=== PATIENT | male | born 1985 | race Caucasian/White ===

== ENCOUNTER 2025-05-03 19:35 | Inpatient (IN) | payer SELFPAY ==
[2025-05-03 19:39] VITALS: BP 115/65; PULSE 88; RESP 14; TEMP 36.6; O2SAT 96
--- NOTE | 2025-05-03 19:41 | ECG_ITS ---
Test Date: 2025-05-03 20:02:44 Measurements Intervals [place] Rate: 79 P: 74 MI: 165 QRS: 88 QRSD: 98 T: 73 QT: 391 QTc: 451 Interpretive Statements SINUS RHYTHM POSSIBLE LEFT ATRIAL ENLARGEMENT CANNOT R/O SEPTAL INFARCT, AGE INDETERMINATE ST ELEVATION IN ANTEROLAT/INF LEADS- CONSIDER PERICARDITIS OR EARLY REPOLARIZATION ABNORMALITY ABNORMAL ECG No previous ECG available for comparison Electronically Signed On 05-03-2025 20:35:52 CDT by Carlos Patel D.O.
[2025-05-03 19:44] VITALS: RESP 14; O2SAT 97
[2025-05-03] MEDS: ONDANSETRON INJ 4 MG/2 ML VIAL IV PUSH (19:52)
[2025-05-03] MEDS: SODIUM CHLORIDE 0.9% IV 1,000 ML 999 ML IV CONT (19:52)
[2025-05-03 20:05] VITALS: PULSE 82
[2025-05-03 20:06] LABS: Fractional Inspired Oxygen 21 %; HCO3 VBG 15.2 mEq/l (24.0-30.0); PO2 VBG 106.9 mmHg (35.0-45.0)
[2025-05-03 20:07] LABS: Device ROOM AIR; PCO2 VBG 24.5 mmHg (42.0-48.0); pH VBG 7.411 (7.300-7.400)
[2025-05-03 20:10] LABS: Basophils Percent Auto 0.6 % (0.2-1.2); Eosinophils Absolute Auto 0.2 K/mm3 (0-0.3); Eosinophils Percent Auto 2.6 % (0-4.4); Hematocrit 25.5 % (42.0-52.0); Hemoglobin 8.2 g/dL (14.0-18.0); Immature Granulocyte Absolute 0.04 K/mm3 (0.00-0.031); Immature Granulocyte Percent A 0.6 % (0-0.5); Lymphocytes Absolute Auto 1.96 K/mm3 (0.9-3.2); Lymphocytes Percent Auto 27.8 % (18.3-44.2); Mean Corpuscular HGB Conc 32.2 g/dl (32-36); Mean Corpuscular Hemoglobin 31.3 pg (26-34); Mean Corpuscular Volume 97.3 fl (80-100); Mean Platelet Volume 9.3 fl (7.4-10.4); Monocytes Absolute Auto 0.5 K/mm3 (0.1-0.6); Monocytes Percent Auto 7.7 % (2.6-8.5); Neutrophils Absolute Auto 4.3 K/mm3 (1.3-6.7); Neutrophils Percent Auto 60.7 % (45.5-73.1); Platelet Count Result 161 k/mm3 (150-375); Red Blood Count 2.62 M/mm3 (4.6-6.20); White Blood Count 7.1 K/mm3 (4.5-10.0)
--- NOTE | 2025-05-03 20:16 | ED_ITS ---
HPI - General Adult General Chief complaint: Overdose Stated complaint: OVERDOSE ON TYLENOL Time Seen by Provider: 05/03/25 19:40 History of Present Illness HPI narrative: This is a 40-year-old male presenting ED for Tylenol overdose. Patient says he talked approximately 115 500 mg tabs of Tylenol. He did this in an attempt to end his life. Patient cannot tell me why he wanted to end his life. He has have a history of suicide attempts we will not tell me why. The patient admits to being nauseous. No other symptoms. Related Data Allergies Allergy/AdvReac Type Severity Reaction Status Date / Time No Known Allergies Allergy Verified 05/03/25 19:47 [facility] Social History Social History Substance use type: does not use Exam 2 Narrative: APPEARANCE: No apparent distress. Head: atraumatic. EYES: EOMI, NOSE: Atraumatic NECK: Trachea midline RESPIRATORY: No increased rate of breathing CTAB CARDIOVASCULAR: RRR, no peripheral edema ABDOMINAL: Non-distended soft nontender MUSCULOSKELETAl: No obvious deformities NEURO: Alert. Moving 4/4 extremities SKIN:: Warm, dry. Normal color PSYCHIATRIC: Withdrawn Course Vital Signs Vital signs: Vital Signs Temperature 97.8 F 05/03/25 19:39 Pulse Rate 88 05/03/25 19:39 Respiratory Rate 14 05/03/25 19:39 Blood Pressure 115/65 05/03/25 19:39 Pulse Oximetry 96 05/03/25 19:39 Oxygen Delivery Room Air 05/03/25 19:39 Temperature 97.8 F 05/03/25 19:39 Pulse Rate 82 05/03/25 20:05 Respiratory Rate 14 05/03/25 19:44 Blood Pressure 115/65 05/03/25 19:39 Pulse Oximetry 97 05/03/25 19:44 Oxygen Delivery Room Air 05/03/25 19:44 Medical Decision Making [facility] Narrative Medical decision making narrative: -Course: 40-year-old male presenting with intentional Tylenol overdose. Patient took proximally 115 x 500mg tablets. Poison control consulted. Initial acetaminophen level elevated at 303. Patient hits the cutoff for NAC treatment and he has been started on therapy. Initial labs had multiple abnormalities did not fit the clinical picture. These were repeated with normal values. Patient will be admitted to the ICU for further management of his acetaminophen overdose. UA and UDS were pending at admission. -DDX includes but is not limited to: Tylenol overdose,, polysubstance use disorder, suicide attempt, depression, anxiety -Co-morbidities complicating care: Depression, -Social determinants of health: Homeless -Independent interpretation of studies: White count 9.6. Hemoglobin 13.5. Metabolic panel unremarkable. Liver enzymes @ baseline. INR 1.7 although this is being repeated due to some lab errors. Acetaminophen initially 303 and increased to 391. 4 hour level pending. Viral swabs negative. Independent EKG interpretation: Rhythm [sinus], Rate [79], [place] -[normal], [place] -[normal], QRS [narrow], QTC [normal], T waves -[negative for concerning inversions], ST Segments - [Negative for concerning elevations] Final interpretations: Normal sinus rhythm with benign early repol. -Discussion of Management/Consultants:Javon Gonzalez Vital Signs Vital Signs: Vital Signs Temperature 97.8 F 05/03/25 19:39 Pulse Rate 88 05/03/25 19:39 Respiratory Rate 14 05/03/25 19:39 Blood Pressure 115/65 05/03/25 19:39 Pulse Oximetry 96 05/03/25 19:39 Oxygen Delivery Room Air 05/03/25 19:39 Temperature 97.8 F 05/03/25 19:39 Pulse Rate 82 05/03/25 20:05 Respiratory Rate 14 05/03/25 19:44 Blood Pressure 115/65 05/03/25 19:39 Pulse Oximetry 97 05/03/25 19:44 Oxygen Delivery Room Air 05/03/25 19:44 Lab Data 05/03/25 20:45 05/03/25 20:45 Labs: Lab Results 05/03/25 05/03/25 Range/Units 20:02 20:45 WBC 7.1 9.6 (4.5-10.0) K/mm3 RBC 2.62 L 4.28 L (4.6-6.20) M/mm3 Hgb 8.2 L 13.5 L D (14.0-18.0) g/dL Hct 25.5 L 40.8 L (42.0-52.0) % MCV 97.3 95.3 (80-100) fl MCH 31.3 31.5 (26-34) pg MCHC 32.2 33.1 (32-36) g/dl RDW 13.0 12.9 (11.5-14.5) % Plt Count 161 254 D (150-375) k/mm3 MPV 9.3 9.3 (7.4-10.4) fl Immature Gran % (Auto) 0.6 H 0.4 (0-0.5) % Neut % (Auto) 60.7 67.9 (45.5-73.1) % Lymph % (Auto) 27.8 20.8 (18.3-44.2) % [place] % (Auto) 7.7 8.5 (2.6-8.5) % Eos % (Auto) 2.6 1.6 (0-4.4) % Baso % (Auto) 0.6 0.8 (0.2-1.2) % Lymph # (Auto) 1.96 1.99 (0.9-3.2) K/mm3 [place] # (Auto) 0.5 0.8 H (0.1-0.6) K/mm3 Eos # (Auto) 0.2 0.2 (0-0.3) K/mm3 Baso # (Auto) 0.0 0.1 (0.0-0.1) K/mm3 Abs Immat Gran (auto) 0.04 H 0.04 H (0.00-0.031) K/mm3 Absolute Neuts (auto) 4.3 6.5 (1.3-6.7) K/mm3 Absolute Nucleated RBC 0.000 0.000 (0.0-0.012) K/mm3 Nucleated RBC % 0.0 0.0 (0.0-0.2) % PT 20.0 H (11.1-14.7) Seconds INR 1.7 APTT 33.9 (22.3-36.8) Seconds Sodium 141 139 (137-145) mmol/L Potassium < 2.0 L* 4.1 (3.4-5.0) mmol/L Chloride 125 H 105 (98-107) mmol/L Carbon Dioxide 12 L 27 (22-30) mmol/L Anion Gap 4 7 (4-12) mmol/L BUN 10 17 (9-20) mg/dL Creatinine 0.32 L 0.73 (0.7-1.3) mg/dL Estim Creat Clear Calc 264 128 ml/min Estimated GFR > 60 > 60 (59 - ) Glucose 103 151 H (65-110) mg/dL Calcium 4.6 L* 8.9 (8.4-10.2) mg/dL Phosphorus 2.6 (2.5-4.5) mg/dL Magnesium 0.9 L 1.7 (1.6-2.3) mg/dL Total Bilirubin 0.5 0.8 (0.2-1.3) mg/dL AST 13 L 24 (17-59) U/L ALT 15 28 (6-50) U/L Alkaline Phosphatase 35 L 57 (38-126) U/L Troponin I < 0.012 < 0.012 (0.000-0.034) ng/mL Total Protein 3.4 L 6.2 L (6.3-8.2) g/dL Albumin 1.7 L 3.9 (3.5-5.1) g/dL Lipase 15 L (23-300) U/L Salicylates < 1.0 L (2-20) mg/dL Acetaminophen 303 H* 391 H* (10-30) ug/mL Influenza A (RT-PCR) Negative (Negative) Influenza B (RT-PCR) Negative (Negative) RSV (RT-PCR) Negative (Negative) SARS-CoV-2 RNA (RT-PCR) Negative (Negative) ABG Data ABG results: 05/03/25 20:02 VBG pH 7.411 H* VBG pCO2 24.5 L* VBG pO2 106.9 H VBG HCO3 15.2 L O2 Delivery Device Room air O2 Liters/Min 0.0 FiO2 21 Discharge Plan Discharge Clinical Impression: Acetaminophen overdose, Suicide attempt Patient Disposition: Still a Patient Condition: Serious Patient Language: Croatian Follow-up/Referrals: Ramón Cruz MD [Primary Care Provider] -
[2025-05-03 20:20] LABS: Salicylate < 1.0 mg/dL (2-20)
[2025-05-03 20:21] LABS: Phosphorus 2.6 mg/dL (2.5-4.5)
[2025-05-03 20:24] LABS: INR 1.7
[2025-05-03 20:25] LABS: Partial Thromboplastin Time 33.9 Seconds (22.3-36.8)
[2025-05-03 20:30] LABS: Alanine Aminotransferase 15 U/L (6-50); Albumin Level 1.7 g/dL (3.5-5.1); Alkaline Phosphatase 35 U/L (38-126); Aspartate Amino Transferase 13 U/L (17-59)
[2025-05-03 20:31] LABS: Anion Gap 4 mmol/L (4-12); Bilirubin,Total 0.5 mg/dL (0.2-1.3); Blood Urea Nitrogen 10 mg/dL (9-20); Calcium 4.6 mg/dL (8.4-10.2); Carbon Dioxide 12 mmol/L (22-30); Chloride 125 mmol/L (98-107); Estimated CRCL calculation 264 ml/min; Estimated Glomerular Filt Rate > 60; Glucose 103 mg/dL (65-110); Lipase 15 U/L (23-300); Magnesium 0.9 mg/dL (1.6-2.3); Potassium < 2.0 mmol/L (3.4-5.0); Sodium 141 mmol/L (137-145); Total Protein 3.4 g/dL (6.3-8.2); Troponin I < 0.012 ng/mL (0.000-0.034)
--- NOTE | 2025-05-03 20:44 | PC.NURSE ---
Report given to JENI Larsen. Patient moved from room 8 to room 14, sitter at bedside.
[2025-05-03 20:47] LABS: Influenza A QL RT-PCR Negative (Negative); Influenza B QL RT-PCR Negative (Negative); RSV RNA, RT-PCR Negative (Negative); SARS-CoV-2 RNA PCR Negative (Negative)
[2025-05-03 20:55] LABS: Basophils Absolute Auto 0.1 K/mm3 (0.0-0.1); Basophils Percent Auto 0.8 % (0.2-1.2); Eosinophils Absolute Auto 0.2 K/mm3 (0-0.3); Eosinophils Percent Auto 1.6 % (0-4.4); Hematocrit 40.8 % (42.0-52.0); Immature Granulocyte Absolute 0.04 K/mm3 (0.00-0.031); Immature Granulocyte Percent A 0.4 % (0-0.5); Lymphocytes Absolute Auto 1.99 K/mm3 (0.9-3.2); Lymphocytes Percent Auto 20.8 % (18.3-44.2); Mean Corpuscular HGB Conc 33.1 g/dl (32-36); Mean Corpuscular Hemoglobin 31.5 pg (26-34); Mean Corpuscular Volume 95.3 fl (80-100); Mean Platelet Volume 9.3 fl (7.4-10.4); Monocytes Absolute Auto 0.8 K/mm3 (0.1-0.6); Monocytes Percent Auto 8.5 % (2.6-8.5); Neutrophils Absolute Auto 6.5 K/mm3 (1.3-6.7); Neutrophils Percent Auto 67.9 % (45.5-73.1); Red Blood Count 4.28 M/mm3 (4.6-6.20); Red Cell Distribution Width 12.9 % (11.5-14.5); White Blood Count 9.6 K/mm3 (4.5-10.0)
[2025-05-03 21:05] LABS: Hemoglobin 13.5 g/dL (14.0-18.0); Platelet Count Result 254 k/mm3 (150-375)
[2025-05-03 21:17] LABS: Alanine Aminotransferase 28 U/L (6-50); Albumin Level 3.9 g/dL (3.5-5.1); Alkaline Phosphatase 57 U/L (38-126); Anion Gap 7 mmol/L (4-12); Aspartate Amino Transferase 24 U/L (17-59); Bilirubin,Total 0.8 mg/dL (0.2-1.3); Blood Urea Nitrogen 17 mg/dL (9-20); Calcium 8.9 mg/dL (8.4-10.2); Carbon Dioxide 27 mmol/L (22-30); Chloride 105 mmol/L (98-107); Estimated CRCL calculation 128 ml/min; Estimated Glomerular Filt Rate > 60; Glucose 151 mg/dL (65-110); Magnesium 1.7 mg/dL (1.6-2.3); Potassium 4.1 mmol/L (3.4-5.0); Sodium 139 mmol/L (137-145); Total Protein 6.2 g/dL (6.3-8.2)
[2025-05-03 21:20] LABS: Acetaminophen 391 ug/mL (10-30)
[2025-05-03 21:23] LABS: Troponin I < 0.012 ng/mL (0.000-0.034)
[2025-05-03 21:25] LABS: Acetaminophen 303 ug/mL (10-30)
[2025-05-03 21:40] VITALS: BP 90/47; PULSE 72; RESP 16; O2SAT 98
--- NOTE | 2025-05-03 21:40 | PC.NURSE ---
This RN spoke with Neri at [place] [facility]. This RN ws advised to redraw acetaminophen 4 hours post ingestion. This redraw is to be timed for 2300. pt ingested about 115 tablets of 500mg acetaminophen. Case number is #[id number]. This RN was also told about a possible anaphylactic reaction to acetylcysteine. If this was to occur, Neri advised to treat with Benadryl and once symptoms resolve to cut the rate of the infusion in half and start again.
[2025-05-03 22:09] LABS: Ethanol < 10 mg/dL (<10)
[2025-05-03 22:21] VITALS: BP 91/53; PULSE 67; RESP 13; O2SAT 98
[2025-05-03 22:32] LABS: Add Urine Microscopic? YES; Appearance Urine Clear (Clear); Bacteria Urine None Seen /hpf; Bilirubin Urine Negative (Negative); Blood Urine Negative (Negative); Color Urine Dark Yellow (Yellow); Glucose Urine UA Negative (Negative); Ketones Urine 1+ mg/dL (Negative); Leukocyte Esterase Ur Negative LEU/UL (Negative); Nitrate Urine Negative (Negative); Protein Urine 1+ mg/dL (Negative); RBC Urine 0-2 /hpf (0-2); Specific Grav Ur > 1.045 (1.001-1.035); Squamous Epithelial Cell Urine None Seen /hpf (Few); WBC Urine 0-5 /hpf (0-3)
[2025-05-03] MEDS: ACETYLCYSTEINE IVPB ×2 (22:41→23:55)
[2025-05-03] MEDS: DEXTROSE 5% IVPB ×2 (22:41→23:55)
[2025-05-03] MEDS: WATER IVPB ×2 (22:41→23:55)
[2025-05-03 22:47] LABS: Amphetamine Screen Urine Negative (Negative); Barbiturate Screen Urine Negative (Negative); Benzodiazepines Screen Urine Negative (Negative); Cannabinoid Screen Urine Positive (Negative); Cocaine Screen Urine Negative (Negative); Methadone Screen Urine Negative (Negative); Opiate Screen Urine Negative (Negative); Phencyclidine Screen Urine Negative (Negative)
[2025-05-04] VITALS (18 sets, daily range): BP systolic 113–151; BP diastolic 62–91; PULSE 50–76; RESP 10–20; TEMP 36.6–37; O2SAT 96–99; BMI 22.8
[2025-05-04 00:33] LABS: Lactic Acid Reflex 0.9 mmol/L (0.7-2.0)
--- NOTE | 2025-05-04 00:37 | ADMGEN ---
This patient, Diego Elizondo, was admitted to Intensive Care Unit-7 05/04/25 at 0025. Patient/family oriented to hospital policies and general routines including ID bracelet, bed and alarms, visiting hours, pain management, procedures, bathroom and other care routines, personal items, smoking policy, room service/diet, and visiting hours. Information on how to activate the Rapid Response Team has been discussed. Patient/Family are encouraged to report perceived risks to care and to ask questions if they do not understand what they are told or what they should do.
[2025-05-04 00:39] LABS: INR 1.1
[2025-05-04 00:43] LABS: Acetaminophen 311 ug/mL (10-30)
[2025-05-04 00:52] LABS: Partial Thromboplastin Time 25.3 Seconds (22.3-36.8)
[2025-05-04 00:54] LABS: Prothrombin Time 14.7 Seconds (11.1-14.7)
[2025-05-04] MEDS: ONDANSETRON INJ 4 MG/2 ML VIAL IV PUSH (01:10)
[2025-05-04 01:55] LABS: MRSA (PCR) NOT DETECTED (NOT DETECTE)
--- NOTE | 2025-05-04 02:01 | PC.NURSE ---
Dr. Gonzalez to bedside. Patient nauseous, large clear emesis noted. No intervention at this time.
--- NOTE | 2025-05-04 02:12 | P.HP_ITS ---
H&P: HPI History of Present Illness Date/Time: 05/04/25 01:45 Chief Complaint: Tylenol overdose Narrative: 48-year-old male with a past medical history of anxiety, depression, migraines and obstructive sleep apnea who presents to the ER via EMS from local [facility] where he intentionally overdosed on Tylenol. The patient grabbed to bottles of Tylenol will at [facility]. While he was still in the stool or he open the bottles of Tylenol and took approximately 115 tablets of 500 mg Tylenol around 19:00. The patient and proceeded to vomit before he left [facility]. The patient was nauseous in the ER and received Zofran. On arrival to the ICU still complaining of nausea and received another dose of Zofran. When I went to evaluate the patient before the patient even answer to question he sat lead over the side of bed and vomited multiple times in my direction. Emesis consisted of the water that he drink on arrival to the ICU. He denies any abdominal pain but is not willing to express any other complaints besides feeling depressed. He will not discussed why he is depressed inches states that ?a lot of stuff is happened.He told EMS that he took the Tylenol ?because I did some evil things.? Initial labs in the ER were abnormal due to lab draw error. He had correct initial labs demonstrated normal white count hemoglobin at 13.5, hematocrit 40 platelet count 254, INR 1.1 normal PT and PTT, respiratory alkalosis on VBG, sodium 139 potassium 4.1 CO2 27 normal BUN and creatinine glucose 151 calcium 8.9, normal transaminases total protein 6.2 albumin 3.9. The diluted specimen demonstrated a Tylenol level of 303 the correct specimen demonstrate Tylenol level of 391. Urine drug screen was positive for cannabinoid. Patient's salicylate level was negative and alcohol Review of Systems 2 Review of Systems: Unable to obtain review of systems due to lack of patient cooperation. [facility] Past Medical History Medical History (Updated 05/04/25 @ 03:13 by Ya Gonzalez DO) Methamphetamine abuse, episodic Continuous tobacco abuse Depression Surgical History Surgical History (Updated 05/04/25 @ 03:05 by Ya Gonzalez DO) No history of previous surgery Family History Family History Mother Cancer Father Diabetes mellitus Sibling Leukemia Social History Social History (Updated 05/04/25 @ 03:08 by Ya Gonzalez DO) Social History: The patient reports that he is single. He continues to smoke tobacco. He used to drink alcohol quite heavily but quit drinking alcohol approximately 02/2025. He a has experimented with numerous drugs. He still smokes methamphetamines intermittently. He reports he has not smoked meth in a couple months. Code status: Full code Surrogate decision maker: Mitchell (brother) Smoking packs per day: 1 Smoking cigarettes per day: 20.0 Years smoked: 10 Smoking pack-years: 10.00 Smoking status: Current every day smoker Tobacco type: cigarettes, cigars, e-cigarettes/vaping and smokeless tobacco Second hand tobacco smoke exposure: Yes Alcohol intake: former Substance use type: marijuana, crack/cocaine, heroin, amphetamines and painkillers Last use: not in a very long time Do You Feel Safe in your Home?: Yes Lack of Transportation: YES Lack of Food: Often True Current Housing: I Do Not Have Housing Concerned About Future Housing: YES Difficulty Paying Gas/Electric Bills: YES Difficulty Paying for Meds: YES Currently Unemployed: YES Education: Grade School Difficulty w/ Childcare or Family Care: No Spiritual care concerns: No Meds Home Medications and Allergies Allergies Allergy/AdvReac Type Severity Reaction Status Date / Time No Known Allergies Allergy Verified 05/03/25 19:47 Vital Signs Vital Signs - 24 hr 05/03/25 19:39 05/03/25 19:44 05/03/25 19:44 Temperature 97.8 F Pulse Rate 88 Respiratory Rate 14 14 Blood Pressure 115/65 Pulse Oximetry 96 97 Oxygen Delivery Room Air Room Air 05/03/25 20:05 05/03/25 21:40 05/03/25 22:21 Temperature Pulse Rate 82 72 67 Respiratory Rate 16 13 Blood Pressure 90/47 L 91/53 L Pulse Oximetry 98 98 Oxygen Delivery 05/04/25 00:33 05/04/25 00:35 05/04/25 00:39 Temperature 97.8 F Pulse Rate 70 76 Respiratory Rate 13 12 10 L Blood Pressure 117/75 114/73 Pulse Oximetry 96 99 97 Oxygen Delivery Room Air 05/04/25 00:40 05/04/25 02:00 05/04/25 02:00 Temperature Pulse Rate 76 55 L 55 L Respiratory Rate 10 L 15 Blood Pressure 114/73 124/79 Pulse Oximetry 97 97 Oxygen Delivery Exam 2 Narrative: Weight 83.1 kg BMI 22.9 Const: Other: Well-developed, well-nourished, mildly ill-appearing, disheveled HENMT: Other: No oral pharyngeal erythema, fair dentition, head is normocephalic atraumatic Eyes: Other: Pupils are equal and reactive, no scleral icterus, no conjunctival pallor Resp: Other: Clear to auscultation bilaterally anterior dean, no increased work of breathing Cardio: Other: Regular rate, regular rhythm, 2+ bilateral radial pedal pulses GI: Other: Soft, nondistended, normoactive bowel sounds Skin: Other: No pallor, non jaundice Neuro: Other: Alert oriented, speech is clear, no facial asymmetry, no gross motor deficits noted Extrem: Other: No clubbing, cyanosis or edema, moves all extremities equally Psych: Appearance: disheveled Mental Status: mental status grossly normal Speech and movement: Slowed movement present (Neuro) Affect: Sad affect present, Indifferent affect present and Blunted affect present Attitude: G uarded attititude/behavior present, Avoids eye contact (attititude/behavior) and Refuses to answer (attititude/behavior) Thought process: Normal thought process present Thought content: Yes Suicidality present Insight: Fair insight present (Psych) Judgement: Fair judgement present (Psych) H&P: Results Labs Labs: Laboratory Tests 05/03/25 20:45 05/03/25 20:45 05/03/25 05/03/25 05/03/25 20:02 20:44 20:45 WBC 7.1 9.6 RBC 2.62 L 4.28 L Hgb 8.2 L 13.5 L D Hct 25.5 L 40.8 L MCV 97.3 95.3 MCH 31.3 31.5 MCHC 32.2 33.1 RDW 13.0 12.9 Plt Count 161 254 D MPV 9.3 9.3 Immature Gran % (Auto) 0.6 H 0.4 Neut % (Auto) 60.7 67.9 Lymph % (Auto) 27.8 20.8 [place] % (Auto) 7.7 8.5 Eos % (Auto) 2.6 1.6 Baso % (Auto) 0.6 0.8 Lymph # (Auto) 1.96 1.99 [place] # (Auto) 0.5 0.8 H Eos # (Auto) 0.2 0.2 Baso # (Auto) 0.0 0.1 Abs Immat Gran (auto) 0.04 H 0.04 H Absolute Neuts (auto) 4.3 6.5 Absolute Nucleated RBC 0.000 0.000 Nucleated RBC % 0.0 0.0 PT 20.0 H INR 1.7 APTT 33.9 VBG pH 7.411 H* VBG pCO2 24.5 L* VBG pO2 106.9 H VBG HCO3 15.2 L O2 Delivery Device Room air O2 Liters/Min 0.0 FiO2 21 Sodium 141 139 Potassium < 2.0 L* 4.1 Chloride 125 H 105 Carbon Dioxide 12 L 27 Anion Gap 4 7 BUN 10 17 Creatinine 0.32 L 0.73 Estim Creat Clear Calc 264 128 Estimated GFR > 60 > 60 Glucose 103 151 H Lactic Acid Calcium 4.6 L* 8.9 Phosphorus 2.6 Magnesium 0.9 L 1.7 Total Bilirubin 0.5 0.8 AST 13 L 24 ALT 15 28 Alkaline Phosphatase 35 L 57 Troponin I < 0.012 < 0.012 Total Protein 3.4 L 6.2 L Albumin 1.7 L 3.9 Lipase 15 L Urine Color Urine Appearance Urine pH Ur Specific [place] Urine Protein Urine Glucose (UA) Urine Ketones Ur Blood (Man) Urine Nitrate Urine Bilirubin Urine Urobilinogen Leukocyte Esterase Rfl Urine RBC Urine WBC Ur Squamous Epith Cells Urine Bacteria Urine Casts Nasal MRSA (PCR) Salicylates < 1.0 L Urine Opiates Screen Urine Methadone Screen Acetaminophen 303 H* 391 H* Ur Barbiturates Screen Ur Phencyclidine Scrn Ur Amphetamine Screen U Benzodiazepines Scrn Urine Cocaine Screen U Cannabinoids Screen Ethyl Alcohol < 10 Influenza A (RT-PCR) Negative Influenza B (RT-PCR) Negative RSV (RT-PCR) Negative SARS-CoV-2 RNA (RT-PCR) Negative 05/03/25 05/03/25 05/04/25 22:18 22:21 00:11 WBC RBC Hgb Hct MCV MCH MCHC RDW Plt Count MPV Immature Gran % (Auto) Neut % (Auto) Lymph % (Auto) [place] % (Auto) Eos % (Auto) Baso % (Auto) Lymph # (Auto) [place] # (Auto) Eos # (Auto) Baso # (Auto) Abs Immat Gran (auto) Absolute Neuts (auto) Absolute Nucleated RBC Nucleated RBC % PT 14.7 D INR 1.1 APTT 25.3 VBG pH VBG pCO2 VBG pO2 VBG HCO3 O2 Delivery Device O2 Liters/Min FiO2 Sodium Potassium Chloride Carbon Dioxide Anion Gap BUN Creatinine Estim Creat Clear Calc Estimated GFR Glucose Lactic Acid 0.9 Calcium Phosphorus Magnesium Total Bilirubin AST ALT Alkaline Phosphatase Troponin I Total Protein Albumin Lipase Urine Color Dark yellow Urine Appearance Clear Urine pH 5.0 Ur Specific [place] > 1.045 H Urine Protein 1+ H Urine Glucose (UA) Negative Urine Ketones 1+ H Ur Blood (Man) Negative Urine Nitrate Negative Urine Bilirubin Negative Urine Urobilinogen 1.0 Leukocyte Esterase Rfl Negative Urine RBC 0-2 Urine WBC 0-5 Ur Squamous Epith Cells None seen Urine Bacteria None seen Urine Casts 3-5 Nasal MRSA (PCR) Salicylates Urine Opiates Screen Negative Urine Methadone Screen Negative Acetaminophen 311 H* Ur Barbiturates Screen Negative Ur Phencyclidine Scrn Negative Ur Amphetamine Screen Negative U Benzodiazepines Scrn Negative Urine Cocaine Screen Negative U Cannabinoids Screen Positive A Ethyl Alcohol Influenza A (RT-PCR) Influenza B (RT-PCR) RSV (RT-PCR) SARS-CoV-2 RNA (RT-PCR) 05/04/25 00:36 WBC RBC Hgb Hct MCV MCH MCHC RDW Plt Count MPV Immature Gran % (Auto) Neut % (Auto) Lymph % (Auto) [place] % (Auto) Eos % (Auto) Baso % (Auto) Lymph # (Auto) [place] # (Auto) Eos # (Auto) Baso # (Auto) Abs Immat Gran (auto) Absolute Neuts (auto) Absolute Nucleated RBC Nucleated RBC % PT INR APTT VBG pH VBG pCO2 VBG pO2 VBG HCO3 O2 Delivery Device O2 Liters/Min FiO2 Sodium Potassium Chloride Carbon Dioxide Anion Gap BUN Creatinine Estim Creat Clear Calc Estimated GFR Glucose Lactic Acid Calcium Phosphorus Magnesium Total Bilirubin AST ALT Alkaline Phosphatase Troponin I Total Protein Albumin Lipase Urine Color Urine Appearance Urine pH Ur Specific [place] Urine Protein Urine Glucose (UA) Urine Ketones Ur Blood (Man) Urine Nitrate Urine Bilirubin Urine Urobilinogen Leukocyte Esterase Rfl Urine RBC Urine WBC Ur Squamous Epith Cells Urine Bacteria Urine Casts Nasal MRSA (PCR) Not detected Salicylates Urine Opiates Screen Urine Methadone Screen Acetaminophen Ur Barbiturates Screen Ur Phencyclidine Scrn Ur Amphetamine Screen U Benzodiazepines Scrn Urine Cocaine Screen U Cannabinoids Screen Ethyl Alcohol Influenza A (RT-PCR) Influenza B (RT-PCR) RSV (RT-PCR) SARS-CoV-2 RNA (RT-PCR) Assessment and Plan Assessment and plan (1) Suicide attempt: Code(s): T14.91XA - Suicide attempt, initial encounter Status: Acute (2) Acetaminophen overdose: Qualifiers: Encounter type: initial encounter Injury intent: intentional self-harm Qualified Code(s): T39.1X2A - Poisoning by 4-Aminophenol derivatives, intentional self-harm, initial encounter Code(s): T39.1X1A - Poisoning by 4-Aminophenol derivatives, accidental (unintentional), initial encounter Status: Acute (3) Intractable nausea and vomiting: Code(s): R11.2 - Nausea with vomiting, unspecified Status: Acute (4) Continuous tobacco abuse: Code(s): Z72.0 - Tobacco use Status: Acute Plan Patient presented with intentional acetaminophen overdose in attempt to commit suicide. Patient initial Tylenol level was toxic with details mentioned in HPI. Poison Control was contacted. Patient was placed on N-acetylcysteine per protocol. Follow up poison Control recommendations. Patient has been admitted to the ICU. Will monitor serial liver enzymes, coag panel and CBC. Patient has a chief safety officer at bedside. Patient will need evaluation by crisis and psychiatric placement at discharge. Given the patient's intractable nausea vomiting will change patient's diet to NPO until nausea improves. Then will advance diet starting with ice chips if no vomiting after 2 hours. Zofran has been ordered as needed. Will add 1 dose of IM Phenergan and monitor for response. Patient denies [place] just in of drugs and salicylate level and alcohol level were negative. Patient does smoke marijuana an urine drug screen is positive for cannabinoids. No evidence of bleeding, bruising or hepatic dysfunction/coagulopathy at this time. Patient still smokes tobacco in small amounts. He declines smoking cessation education and does not want nicotine supplements. Quality If No VTE Prophylaxis Answer both mechanical and pharmacologic: Reason no mechanical VTE proph: patient/caregiver refusal Reason no pharmacologic proph: patient/caregiver refusal Hospitalist MIPS Advance Care Plan I have confirmed that the patient's Advanced Care Plan is present, code status is documented, or surrogate decision maker is listed in patient medical record.: Yes Medication Reconciliation I have utilized all available resources to obtain, update and review the patients current medications (includes all prescriptions, OTC, herbals, cannabis, and nutritional supplements).: Yes
[2025-05-04] MEDS: ACETYLCYSTEINE IVPB ×2 (03:45→22:35)
[2025-05-04] MEDS: PROMETHAZINE HCL 25 MG/ML AMPUL IM (03:45)
[2025-05-04] MEDS: DEXTROSE 5% IVPB ×2 (03:45→22:35)
[2025-05-04 04:12] LABS: Hematocrit 42.7 % (42.0-52.0); Hemoglobin 14.3 g/dL (14.0-18.0); Mean Corpuscular HGB Conc 33.5 g/dl (32-36); Mean Corpuscular Hemoglobin 31.6 pg (26-34); Mean Corpuscular Volume 94.5 fl (80-100); Mean Platelet Volume 9.4 fl (7.4-10.4); Platelet Count Result 275 k/mm3 (150-375); Red Blood Count 4.52 M/mm3 (4.6-6.20); Red Cell Distribution Width 12.7 % (11.5-14.5); White Blood Count 10.6 K/mm3 (4.5-10.0)
--- NOTE | 2025-05-04 04:17 | PC.NURSE ---
05/04/25 0342 Spoke with Pauly from [place] poison control - recommends repeat lab values 05.04.25 at 1800. Labs include: Acetaminophen level, LFT's, PTT, PT/INR. Order placed.
[2025-05-04 04:23] LABS: INR 1.1; Prothrombin Time 14.4 Seconds (11.1-14.7)
[2025-05-04 04:24] LABS: Partial Thromboplastin Time 25.7 Seconds (22.3-36.8)
[2025-05-04 04:34] LABS: Acetaminophen 186 ug/mL (10-30)
[2025-05-04 04:35] LABS: Alanine Aminotransferase 36 U/L (6-50); Albumin Level 4.5 g/dL (3.5-5.1); Alkaline Phosphatase 42 U/L (38-126); Anion Gap 12 mmol/L (4-12); Aspartate Amino Transferase 24 U/L (17-59); Bilirubin,Total 1.5 mg/dL (0.2-1.3); Blood Urea Nitrogen 14 mg/dL (9-20); Calcium 9.3 mg/dL (8.4-10.2); Carbon Dioxide 24 mmol/L (22-30); Chloride 104 mmol/L (98-107); Estimated CRCL calculation 166 ml/min; Estimated Glomerular Filt Rate > 60; Glucose 150 mg/dL (65-110); Potassium 3.5 mmol/L (3.4-5.0); Sodium 140 mmol/L (137-145)
--- NOTE | 2025-05-04 08:55 | WPDCNINT ---
Assessment and Plan Assessment and plan (1) Acetaminophen overdose: Qualifiers: Encounter type: initial encounter Injury intent: intentional self-harm Qualified Code(s): T39.1X2A - Poisoning by 4-Aminophenol derivatives, intentional self-harm, initial encounter Code(s): T39.1X1A - Poisoning by 4-Aminophenol derivatives, accidental (unintentional), initial encounter Status: Acute Assessment and Plan: Presented with suicide attempt and acetaminophen overdose. Continue NAC infusion Monitor acetaminophen level and LFTs Poison Control notified Start clear liquid diet (2) Continuous tobacco abuse: Code(s): Z72.0 - Tobacco use Status: Acute Assessment and Plan: Patient was encouraged and counseled to quit smoking Nicotine patch (3) Suicide attempt: Code(s): T14.91XA - Suicide attempt, initial encounter Status: Acute Assessment and Plan: One-to-one observation with a sitter Suicide precaution Will consult Psychiatry once medical issues are resolved for recommendation Plan DVT prophylaxis - SCD Nutrition -clear liquid diet Code Status - Full Code Total Critical Care Time - 30 minutes Due to a high probability of clinically significant, life threatening deterioration, the patient required my highest level of preparedness to intervene emergently and I personally spent this critical care time directly and personally managing the patient. This critical care time included obtaining a history; examining the patient; pulse oximetry; ordering and review of studies; arranging urgent treatment with development of a management plan; evaluation of patient's response to treatment; frequent reassessment; and discussions with other providers. It was exclusive of separately billable procedures and treating other patients and teaching time. Please see Assessment and Plan section and the rest of the note for further information on patient assessment and treatment Digital Project Manager Consult Note Consult date: 05/04/25 Reason for consult: Acetaminophen overdose HPI: Diego Elizondo is a 40 year old male with a past medical history of anxiety, depression, migraines and obstructive sleep apnea who is currently not on any treatment presented to the ED via EMS yesterday from local [facility] where he intentionally overdosed on Tylenol. The patient grabbed to bottles of Tylenol at [facility]. He reported that he took approximately 115 tablets of 500 mg Tylenol around 19:00. The patient and proceeded to vomit before he left [facility]. The patient was nauseous in the ER, vomited and received Zofran. Poison control was notified. Labs were drawn. Patient was started on N-acetylcysteine infusion and admitted to ICU. Workup in the ER showed normal white count hemoglobin at 13.5, hematocrit 40 platelet count 254, INR 1.1 normal PT and PTT, respiratory alkalosis on VBG, sodium 139 potassium 4.1 CO2 27 normal BUN and creatinine glucose 151 calcium 8.9, normal transaminases total protein 6.2 albumin 3.9. The diluted specimen demonstrated a Tylenol level of 303 the correct specimen demonstrate Tylenol level of 391. Urine drug screen was positive for cannabinoid. Patient's salicylate level was negative and alcohol This morning patient states he feels better and his nausea vomiting has resolved. He states he would like to be discharged. He also states that he is hungry and would like some food and smokes cigarettes. He admitted that he smokes 1 pack of cigarettes a day and smokes marijuana. He states he is currently unemployed. He was depressed as he felt the whole world is against him much force him to take Tylenol pills to hurt himself. He states that he used to be on treatment for depression but has not been any medications for years. Patient denies fever, chest pain, shortness of breath, cough, nausea vomiting, abdominal pain,, diarrhea, headache or constipation. All other systems were reviewed and were negative Review of Systems Review of Systems: All systems reviewed & are unremarkable except as noted in HPI and below (HPI) COUNTS INCLUDE 234 BEDS AT THE [facility] Past Medical History Medical History (Updated 05/04/25 @ 08:59 by James Alejandro MD) Methamphetamine abuse, episodic Continuous tobacco abuse Depression Surgical History Surgical History No history of previous surgery Family History Family History Mother Cancer Father Diabetes mellitus Sibling Leukemia Social History Social History Social History: The patient reports that he is single. He continues to smoke tobacco. He used to drink alcohol quite heavily but quit drinking alcohol approximately 02/2025. He a has experimented with numerous drugs. He still smokes methamphetamines intermittently. He reports he has not smoked meth in a couple months. Code status: Full code Surrogate decision maker: Mitchell (brother) Smoking packs per day: 1 Smoking cigarettes per day: 20.0 Years smoked: 10 Smoking pack-years: 10.00 Smoking status: Current every day smoker Tobacco type: cigarettes, cigars, e-cigarettes/vaping and smokeless tobacco Second hand tobacco smoke exposure: Yes Alcohol intake: former Substance use type: marijuana, crack/cocaine, heroin, amphetamines and painkillers Last use: not in a very long time Do You Feel Safe in your Home?: Yes Lack of Transportation: YES Lack of Food: Often True Current Housing: I Do Not Have Housing Concerned About Future Housing: YES Difficulty Paying Gas/Electric Bills: YES Difficulty Paying for Meds: YES Currently Unemployed: YES Education: Grade School Difficulty w/ Childcare or Family Care: No Spiritual care concerns: No Meds Home Medications and Allergies Home Medications ?Medication ?Instructions ?Recorded ?Confirmed ?Type No Home Medications 05/04/25 05/04/25 History Allergies Allergy/AdvReac Type Severity Reaction Status Date / Time No Known Allergies Allergy Verified 05/03/25 19:47 Vital Signs Vital Signs - 24 hr 05/03/25 19:39 05/03/25 19:44 05/03/25 19:44 Temperature 36.6 C Pulse Rate 88 Respiratory Rate 14 14 Blood Pressure 115/65 Pulse Oximetry 96 97 Oxygen Delivery Room Air Room Air 05/03/25 20:05 05/03/25 21:40 05/03/25 22:21 Temperature Pulse Rate 82 72 67 Respiratory Rate 16 13 Blood Pressure 90/47 L 91/53 L Pulse Oximetry 98 98 Oxygen Delivery 05/04/25 00:33 05/04/25 00:35 05/04/25 00:39 Temperature 36.6 C Pulse Rate 70 76 Respiratory Rate 13 12 10 L Blood Pressure 117/75 114/73 Pulse Oximetry 96 99 97 Oxygen Delivery Room Air 05/04/25 00:40 05/04/25 02:00 05/04/25 02:00 Temperature Pulse Rate 76 55 L 55 L Respiratory Rate 10 L 15 Blood Pressure 114/73 124/79 Pulse Oximetry 97 97 Oxygen Delivery 05/04/25 04:00 05/04/25 04:00 05/04/25 04:00 Temperature 36.7 C Pulse Rate 50 L 71 Respiratory Rate 15 12 Blood Pressure 117/65 Pulse Oximetry 98 99 Oxygen Delivery Room Air 05/04/25 06:00 05/04/25 06:00 05/04/25 07:55 Temperature 36.8 C Pulse Rate 59 L 59 L 61 Respiratory Rate 13 18 Blood Pressure 113/63 126/73 Pulse Oximetry 97 99 Oxygen Delivery Exam Narrative: General: Pt is alert awake and in NAD Lungs/Chest: Trachea central Clear BS B/L, No crackles or wheezing. Cardiac: RRR. Normal S1 S2. No murmurs Circulation: Pedal pulses are intact and symmetrical. Abdomen: Normal bowel sounds.. Soft. NT. ND. Extremities: No clubbing, cyanosis or edema. Warm : Flores in place Neurologic: Follows commands. Moves all 4 extremities PERRL AO x3 Skin: No Rash Results Labs 05/04/25 03:54 05/04/25 03:54 Labs: Short CBC 05/03/25 05/03/25 05/04/25 Range/Units 20:02 20:45 03:54 WBC 7.1 9.6 10.6 H (4.5-10.0) K/mm3 Hgb 8.2 L 13.5 L D 14.3 (14.0-18.0) g/dL Hct 25.5 L 40.8 L 42.7 (42.0-52.0) % Plt Count 161 254 D 275 (150-375) k/mm3 BMP 05/03/25 05/03/25 05/04/25 20:02 20:45 03:54 Sodium 141 139 140 Potassium < 2.0 L* 4.1 3.5 Chloride 125 H 105 104 Carbon Dioxide 12 L 27 24 BUN 10 17 14 Creatinine 0.32 L 0.73 0.59 L Glucose 103 151 H 150 H Calcium 4.6 L* 8.9 9.3 Cardiac Enzymes 05/03/25 05/03/25 Range/Units 20:02 20:45 Troponin I < 0.012 < 0.012 (0.000-0.034) ng/mL Liver Function 05/03/25 05/03/25 05/04/25 Range/Units 20:02 20:45 03:54 Total Bilirubin 0.5 0.8 1.5 H (0.2-1.3) mg/dL AST 13 L 24 24 (17-59) U/L ALT 15 28 36 (6-50) U/L Alkaline Phosphatase 35 L 57 42 (38-126) U/L Albumin 1.7 L 3.9 4.5 (3.5-5.1) g/dL Urine 05/03/25 Range/Units 22:21 Urine Color Dark yellow (Yellow) Urine Appearance Clear (Clear) Urine pH 5.0 (5.0-9.0) Ur Specific [place] > 1.045 H (1.001-1.035) Urine Protein 1+ H (Negative) mg/dL Urine Glucose (UA) Negative (Negative) mg/dL Quality VTE Prophylaxis VTE prophylaxis: mechanical ordered Hospitalist MIPS Advance Care Plan I have confirmed that the patient's Advanced Care Plan is present, code status is documented, or surrogate decision maker is listed in patient medical record.: Yes Medication Reconciliation I have utilized all available resources to obtain, update and review the patients current medications (includes all prescriptions, OTC, herbals, cannabis, and nutritional supplements).: Yes
[2025-05-04 18:22] LABS: INR 1.2; Prothrombin Time 15.2 Seconds (11.1-14.7)
[2025-05-04 18:23] LABS: Partial Thromboplastin Time 28.9 Seconds (22.3-36.8)
[2025-05-04 18:32] LABS: Acetaminophen 23 ug/mL (10-30)
[2025-05-04 18:39] LABS: Alanine Aminotransferase 66 U/L (6-50); Albumin Level 3.8 g/dL (3.5-5.1); Alkaline Phosphatase 53 U/L (38-126); Anion Gap 10 mmol/L (4-12); Aspartate Amino Transferase 57 U/L (17-59); Bilirubin,Total 1.6 mg/dL (0.2-1.3); Blood Urea Nitrogen 10 mg/dL (9-20); Calcium 9.2 mg/dL (8.4-10.2); Carbon Dioxide 23 mmol/L (22-30); Chloride 106 mmol/L (98-107); Estimated CRCL calculation 127 ml/min; Estimated Glomerular Filt Rate > 60; Glucose 127 mg/dL (65-110); Potassium 3.9 mmol/L (3.4-5.0); Sodium 139 mmol/L (137-145); Total Protein 6.1 g/dL (6.3-8.2)
--- NOTE | 2025-05-04 21:44 | PC.NURSE ---
This RN spoke with Pauly from poison control at [phone]. Poison control requesting another bag of Acetylcysteine at previous rate with repeat labs 2 hours prior to completion of bag #4. Orders received from Dr. Gonzalez. See orders.
[2025-05-05] VITALS (11 sets, daily range): BP systolic 110–148; BP diastolic 71–95; PULSE 57–81; RESP 13–19; TEMP 36.5–36.9; O2SAT 96–99
[2025-05-05 04:13] LABS: Hematocrit 42.1 % (42.0-52.0); Hemoglobin 14.2 g/dL (14.0-18.0); Mean Corpuscular HGB Conc 33.7 g/dl (32-36); Mean Corpuscular Hemoglobin 31.6 pg (26-34); Mean Corpuscular Volume 93.8 fl (80-100); Mean Platelet Volume 9.6 fl (7.4-10.4); Platelet Count Result 252 k/mm3 (150-375); Red Blood Count 4.49 M/mm3 (4.6-6.20); Red Cell Distribution Width 12.9 % (11.5-14.5); White Blood Count 8.3 K/mm3 (4.5-10.0)
[2025-05-05 04:26] LABS: Acetaminophen < 10 ug/mL (10-30)
[2025-05-05 04:31] LABS: Alanine Aminotransferase 78 U/L (6-50); Albumin Level 3.8 g/dL (3.5-5.1); Alkaline Phosphatase 54 U/L (38-126); Anion Gap 5 mmol/L (4-12); Aspartate Amino Transferase 42 U/L (17-59); Blood Urea Nitrogen 9 mg/dL (9-20); Carbon Dioxide 26 mmol/L (22-30); Chloride 108 mmol/L (98-107); Estimated CRCL calculation 146 ml/min; Estimated Glomerular Filt Rate > 60; Glucose 106 mg/dL (65-110); Sodium 139 mmol/L (137-145); Total Protein 6.2 g/dL (6.3-8.2)
--- NOTE | 2025-05-05 08:47 | WPDINTPN ---
Progress Note: A&P Assessment and Plan (1) Acetaminophen overdose: Qualifiers: Encounter type: initial encounter Injury intent: intentional self-harm Qualified Code(s): T39.1X2A - Poisoning by 4-Aminophenol derivatives, intentional self-harm, initial encounter Code(s): T39.1X1A - Poisoning by 4-Aminophenol derivatives, accidental (unintentional), initial encounter Status: Acute Assessment and Plan: Presented with suicide attempt and acetaminophen overdose. And was started on NAC infusion. His ALT level went up so although acetaminophen level has cleared Continue NAC infusion for now Recheck LFTs later in the day LFTs Poison Control notified (2) Continuous tobacco abuse: Code(s): Z72.0 - Tobacco use Status: Acute Assessment and Plan: Patient was encouraged and counseled to quit smoking Nicotine patch (3) Suicide attempt: Code(s): T14.91XA - Suicide attempt, initial encounter Status: Acute Assessment and Plan: One-to-one observation with a sitter Suicide precaution Will consult Psychiatry once medical issues are resolved for recommendation Plan DVT prophylaxis - SCD, ambulating Nutrition -tolerating diet Code Status - Full Code Transfer out of ICU today Subjective Date/time seen: 05/05/25 Overnight events reviewed. Afebrile. On room air. Stable vital signs. Tolerating p.o. diet He denies any complaints and states he feels fine as he. Patient denies fever, chest pain, shortness of breath, cough, nausea vomiting, abdominal pain,, diarrhea, headache or constipation.. All other systems were reviewed and were negative Review of Systems Review of Systems: All systems reviewed & are unremarkable except as noted in HPI and below (HPI) Exam Narrative: General: Pt is alert awake and in NAD Lungs/Chest: Trachea central Clear BS B/L, No crackles or wheezing. Cardiac: RRR. Normal S1 S2. No murmurs Circulation: Pedal pulses are intact and symmetrical. Abdomen: Normal bowel sounds.. Soft. NT. ND. Extremities: No clubbing, cyanosis or edema. Warm : Flores in place Neurologic: Follows commands. Moves all 4 extremities PERRL AO x3 Skin: No Rash Objective Data Vital Signs Vital Signs: Vital Signs - 24 hr 05/04/25 09:15 05/04/25 10:00 05/04/25 10:00 Temperature 36.8 C Pulse Rate 69 65 Respiratory Rate 18 Blood Pressure 123/81 Pulse Oximetry 98 97 Oxygen Delivery Room Air 05/04/25 11:56 05/04/25 12:00 05/04/25 14:00 Temperature 36.8 C Pulse Rate 65 68 57 L Respiratory Rate 18 Blood Pressure 140/85 Pulse Oximetry 98 Oxygen Delivery 05/04/25 14:00 05/04/25 16:00 05/04/25 16:00 Temperature 36.9 C Pulse Rate 67 62 64 Respiratory Rate 18 18 Blood Pressure 128/66 133/80 Pulse Oximetry 98 96 Oxygen Delivery 05/04/25 18:00 05/04/25 18:00 05/04/25 19:54 Temperature Pulse Rate 68 68 Respiratory Rate 16 Blood Pressure 151/78 H Pulse Oximetry 96 Oxygen Delivery Room Air 05/04/25 20:00 05/04/25 20:00 05/04/25 22:00 Temperature 37.0 C Pulse Rate 68 63 62 Respiratory Rate 16 Blood Pressure 125/62 Pulse Oximetry 96 Oxygen Delivery 05/04/25 22:00 05/05/25 00:00 05/05/25 00:00 Temperature 36.9 C Pulse Rate 74 66 Respiratory Rate 20 16 Blood Pressure 138/91 H 134/83 Pulse Oximetry 98 98 Oxygen Delivery Room Air 05/05/25 00:00 05/05/25 02:00 05/05/25 02:00 Temperature Pulse Rate 67 58 L 58 L Respiratory Rate 15 Blood Pressure 110/71 Pulse Oximetry 96 Oxygen Delivery 05/05/25 04:00 05/05/25 04:00 05/05/25 04:00 Temperature 36.8 C Pulse Rate 57 L 72 Respiratory Rate 14 Blood Pressure 114/72 Pulse Oximetry 97 Oxygen Delivery Room Air 05/05/25 06:00 05/05/25 06:00 05/05/25 08:00 Temperature 36.6 C Pulse Rate 75 72 77 Respiratory Rate 16 19 Blood Pressure 136/94 H 119/95 H Pulse Oximetry 97 98 Oxygen Delivery 05/05/25 08:34 Temperature 36.6 C Pulse Rate Respiratory Rate Blood Pressure Pulse Oximetry Oxygen Delivery Intake/Output Intake/Output: Intake & Output 05/02/25 05/03/25 05/04/25 05/05/25 23:59 23:59 23:59 23:59 Intake Total 1263.25 3153.25 250 Output Total 1850 1600 Balance 1263.25 1303.25 -1350 Meds/Results Medications: Active Medications Generic Name Dose Route Start Last Admin Trade Name Freq PRN Reason Stop Dose Admin Ondansetron HCl 4 mg 05/04/25 01:03 05/04/25 01:10 Ondansetron Inj 4 Mg/2 Ml Vial IV PUSH 4 mg Q6H PRN Administration Nausea And Vomiting Labs Labs: Laboratory Results - last 24 hr 05/04/25 05/05/25 17:52 04:07 WBC 8.3 RBC 4.49 L Hgb 14.2 Hct 42.1 MCV 93.8 MCH 31.6 MCHC 33.7 RDW 12.9 Plt Count 252 MPV 9.6 PT 15.2 H INR 1.2 APTT 28.9 Sodium 139 139 Potassium 3.9 4.0 Chloride 106 108 H Carbon Dioxide 23 26 Anion Gap 10 5 BUN 10 9 Creatinine 0.77 0.66 L Estim Creat Clear Calc 127 146 Estimated GFR > 60 > 60 Glucose 127 H 106 Calcium 9.2 9.0 Phosphorus 2.0 L Magnesium 2.0 Total Bilirubin 1.6 H 1.0 AST 57 42 ALT 66 H 78 H Alkaline Phosphatase 53 54 Total Protein 6.1 L 6.2 L Albumin 3.8 3.8 Acetaminophen 23 < 10 L Quality VTE Prophylaxis VTE prophylaxis: mechanical ordered
[2025-05-05] MEDS: NICOTINE (*PBKC) 7 MG PATCH 1 PATCH TRANSDERM (10:49)
--- NOTE | 2025-05-05 11:31 | PM.IMPN ---
Progress Note: A&P Assessment and Plan (1) Acetaminophen overdose: Qualifiers: Encounter type: initial encounter Injury intent: intentional self-harm Qualified Code(s): T39.1X2A - Poisoning by 4-Aminophenol derivatives, intentional self-harm, initial encounter Code(s): T39.1X1A - Poisoning by 4-Aminophenol derivatives, accidental (unintentional), initial encounter Status: Acute Assessment and Plan: Presented with suicide attempt and acetaminophen overdose. S/p NAC infusion. Tylenol <10, ALT 72 Monitor liver enzymes Poison Control notified (2) Continuous tobacco abuse: Code(s): Z72.0 - Tobacco use Status: Acute Assessment and Plan: Patient was encouraged and counseled to quit smoking Nicotine patch (3) Suicide attempt: Code(s): T14.91XA - Suicide attempt, initial encounter Status: Acute Assessment and Plan: One-to-one observation with a sitter Suicide precaution Will consult Psychiatry once medical issues are resolved for recommendation Plan DVT prophylaxis - Sq Lovenox Code Status - Full Code Patient is medically stable for Psych eval for inpatient psych Subjective Date/time seen: 05/05/25 11:31 Interval history: Comfortable at bedside Review of Systems Review of Systems: Unable to obtain review of systems due to lack of patient cooperation. All systems reviewed & are unremarkable except as noted in HPI and below (HPI) Exam Narrative: General: Pt is alert awake and in NAD Lungs/Chest: Trachea central Clear BS B/L, No crackles or wheezing. Cardiac: RRR. Normal S1 S2. No murmurs Circulation: Pedal pulses are intact and symmetrical. Abdomen: Normal bowel sounds.. Soft. NT. ND. Extremities: No clubbing, cyanosis or edema. Warm : Flores in place Neurologic: Follows commands. Moves all 4 extremities PERRL AO x3 Skin: No Rash Const: Other: Well-developed, well-nourished, mildly ill-appearing, disheveled HENMT: Other: No oral pharyngeal erythema, fair dentition, head is normocephalic atraumatic Eyes: Other: Pupils are equal and reactive, no scleral icterus, no conjunctival pallor Resp: Other: Clear to auscultation bilaterally anterior dean, no increased work of breathing Cardio: Other: Regular rate, regular rhythm, 2+ bilateral radial pedal pulses GI: Other: Soft, nondistended, normoactive bowel sounds Skin: Other: No pallor, non jaundice Neuro: Other: Alert oriented, speech is clear, no facial asymmetry, no gross motor deficits noted Extrem: Other: No clubbing, cyanosis or edema, moves all extremities equally Psych: Appearance: disheveled Mental Status: mental status grossly normal Speech and movement: Slowed movement present (Neuro) Affect: Sad affect present, Indifferent affect present and Blunted affect present Attitude: Guarded attititude/behavior present, Avoids eye contact (attititude/behavior) and Refuses to answer (attititude/behavior) Thought process: Normal thought process present Insight: Fair insight present (Psych) Judgement: Fair judgement present (Psych) Objective Data Vital Signs Vital Signs: Vital Signs - 24 hr 05/04/25 11:56 05/04/25 12:00 05/04/25 14:00 Temperature 98.3 F Pulse Rate 65 68 57 L Respiratory Rate 18 Blood Pressure 140/85 Pulse Oximetry 98 Oxygen Delivery 05/04/25 14:00 05/04/25 16:00 05/04/25 16:00 Temperature 98.4 F Pulse Rate 67 62 64 Respiratory Rate 18 18 Blood Pressure 128/66 133/80 Pulse Oximetry 98 96 Oxygen Delivery 05/04/25 18:00 05/04/25 18:00 05/04/25 19:54 Temperature Pulse Rate 68 68 Respiratory Rate 16 Blood Pressure 151/78 H Pulse Oximetry 96 Oxygen Delivery Room Air 05/04/25 20:00 05/04/25 20:00 05/04/25 22:00 Temperature 98.6 F Pulse Rate 68 63 62 Respiratory Rate 16 Blood Pressure 125/62 Pulse Oximetry 96 Oxygen Delivery 05/04/25 22:00 05/05/25 00:00 05/05/25 00:00 Temperature 98.5 F Pulse Rate 74 66 Respiratory Rate 20 16 Blood Pressure 138/91 H 134/83 Pulse Oximetry 98 98 Oxygen Delivery Room Air 05/05/25 00:00 05/05/25 02:00 05/05/25 02:00 Temperature Pulse Rate 67 58 L 58 L Respiratory Rate 15 Blood Pressure 110/71 Pulse Oximetry 96 Oxygen Delivery 05/05/25 04:00 05/05/25 04:00 05/05/25 04:00 Temperature 98.2 F Pulse Rate 57 L 72 Respiratory Rate 14 Blood Pressure 114/72 Pulse Oximetry 97 Oxygen Delivery Room Air 05/05/25 06:00 05/05/25 06:00 05/05/25 08:00 Temperature 97.8 F Pulse Rate 75 72 77 Respiratory Rate 16 19 Blood Pressure 136/94 H 119/95 H Pulse Oximetry 97 98 Oxygen Delivery 05/05/25 08:00 05/05/25 08:34 05/05/25 10:00 Temperature 98 F Pulse Rate 75 81 Respiratory Rate Blood Pressure Pulse Oximetry Oxygen Delivery 05/05/25 10:00 Temperature Pulse Rate 67 Respiratory Rate Blood Pressure Pulse Oximetry Oxygen Delivery Intake/Output Intake/Output: Intake & Output 05/02/25 05/03/25 05/04/25 05/05/25 23:59 23:59 23:59 23:59 Intake Total 1263.25 3153.25 490 Output Total 1850 1600 Balance 1263.25 1303.25 -1110 Meds/Results Medications: Active Medications Generic Name Dose Route Start Last Admin Trade Name Freq PRN Reason Stop Dose Admin Nicotine 1 patch 05/05/25 09:00 05/05/25 10:49 Nicotine (*Pbkc) 7 Mg Patch TRANSDERM 1 patch DAILY MEHREEN Administration Ondansetron HCl 4 mg 05/04/25 01:03 05/04/25 01:10 Ondansetron Inj 4 Mg/2 Ml Vial IV PUSH 4 mg Q6H PRN Administration Nausea And Vomiting Labs Labs: Laboratory Results - last 24 hr 05/04/25 05/05/25 17:52 04:07 WBC 8.3 RBC 4.49 L Hgb 14.2 Hct 42.1 MCV 93.8 MCH 31.6 MCHC 33.7 RDW 12.9 Plt Count 252 MPV 9.6 PT 15.2 H INR 1.2 APTT 28.9 Sodium 139 139 Potassium 3.9 4.0 Chloride 106 108 H Carbon Dioxide 23 26 Anion Gap 10 5 BUN 10 9 Creatinine 0.77 0.66 L Estim Creat Clear Calc 127 146 Estimated GFR > 60 > 60 Glucose 127 H 106 Calcium 9.2 9.0 Phosphorus 2.0 L Magnesium 2.0 Total Bilirubin 1.6 H 1.0 AST 57 42 ALT 66 H 78 H Alkaline Phosphatase 53 54 Total Protein 6.1 L 6.2 L Albumin 3.8 3.8 Acetaminophen 23 < 10 L Quality VTE Prophylaxis VTE prophylaxis: mechanical ordered
[2025-05-05 12:40] LABS: INR 1.1; Prothrombin Time 14.4 Seconds (11.1-14.7)
[2025-05-05 12:41] LABS: Partial Thromboplastin Time 27.3 Seconds (22.3-36.8)
[2025-05-05 12:46] LABS: Acetaminophen < 10 ug/mL (10-30)
[2025-05-05 12:51] LABS: Alanine Aminotransferase 71 U/L (6-50); Alkaline Phosphatase 60 U/L (38-126); Anion Gap 12 mmol/L (4-12); Aspartate Amino Transferase 37 U/L (17-59); Bilirubin,Total 0.9 mg/dL (0.2-1.3); Blood Urea Nitrogen 8 mg/dL (9-20); Calcium 9.5 mg/dL (8.4-10.2); Carbon Dioxide 16 mmol/L (22-30); Chloride 111 mmol/L (98-107); Estimated CRCL calculation 149 ml/min; Estimated Glomerular Filt Rate > 60; Glucose 101 mg/dL (65-110); Potassium 4.1 mmol/L (3.4-5.0); Sodium 139 mmol/L (137-145); Total Protein 6.3 g/dL (6.3-8.2)
--- NOTE | 2025-05-05 15:00 | WPDCNPSYCH ---
Assessment and Plan Assessment and plan (1) Suicide attempt: Code(s): T14.91XA - Suicide attempt, initial encounter Status: Acute Assessment and Plan: patient denied active suicidal thoughts at time of assessment. he reports that this is not his first suicide attempt. patient is still high risk. continue suicide precautions. (2) Insomnia due to other mental disorder: Code(s): F51.05 - Insomnia due to other mental disorder; F99 - Mental disorder, not otherwise specified Status: Acute Assessment and Plan: Insomnia Assessment: Patient reports recent onset of insomnia, getting only 1-2 hours of broken sleep over a couple of nights. This is a significant change from his previous pattern of falling asleep easily after work. Plan: - initiate trazodone 50 mg po HS for sleep - Consider melatonin per patient prefrence. - Educate patient on option to refuse sleep medications if desired Plan Diego, a male patient with a history of depression and incarceration, presents with recent insomnia, paranoia, and suicidal ideation following a Tylenol ingestion attempt. Major Depressive Disorder with Suicidal Ideation Assessment: Patient reports a history of depression since 2003, following [facility]. Recent exacerbation of symptoms includes insomnia, paranoia, and suicidal ideation leading to a Tylenol ingestion attempt. Patient endorses feeling that even my own family hates me and not wanting to live anymore. Previous trials of Wellbutrin and Prozac in his twenties were unsuccessful due to side effects including headaches and increased depression resulting in an inadiquate trial of medication. Family history of mental illness is reported but details are unclear. Patient scored positively for depression arcos depression inventory. Plan: - Initiate Prozac 20 mg po daily - To be taken in the morning to minimize insomnia risk - Informed consent: Discussed potential benefits for depression, anxiety, and insomnia; patient aware of previous side effects - Continue suicide precautions - Consider supervised phone calls with family members - Anticipate transfer from ICU to med-surg floor, then evaluate for discharge - Follow up on depression symptoms and medication efficacy - suggest inpatient psychiatric hospitalization after medically cleared. Generalized Anxiety Disorder Assessment: Patient reports symptoms consistent with generalized anxiety disorder, including excessive worry, difficulty controlling worry, and feeling restless. BRE-7 assessment indicates significant anxiety symptoms over the past 2 weeks. Plan: - Initiate Prozac (as mentioned in depression plan) - Informed patient that Prozac is approved for generalized anxiety disorder - Monitor for improvement in anxiety symptoms with Prozac treatment Substance Use Assessment: Patient reports smoking marijuana quite a bit, day. patient has a history of amphetamine use, last used over 10 years ago. Plan: - discussed impact of substance use on mental health - Assess impact of marijuana cessation on mental health symptoms The note is transcribed using speech recognition software. It is a reflection of a visit with the patient. It might have some inaccuracy, including medication names and transcribing errors, though efforts have been made to correct them. HPI Data of Consult Date/Time: 05/05/25 15:00 Requesting Physician: Ya Gonzalez DO Primary Care Provider: Ramón Cruz MD Consult Narrative Narrative: Diego Eliozndo is a 40 year old male Chief Complaint Insomnia, paranoid thoughts, suicidal ideation with Tylenol ingestion, depression, anxiety History of Present Illness Diego is a male patient with a history of depression and marijuana use who presents with recent insomnia, paranoia, and suicide attempt by OD on tylenol. The patient reports that he first noticed sleep disturbances when he came home from work and was unable to fall asleep as usual. This insomnia persisted for a couple of nights, with Diego only getting one to two hours of broken sleep at a time. Concurrent with the sleep disturbances, Diego experienced symptoms of paranoia and unusual thoughts, such as believing people were lying to him. He describes feeling definitely unusual and having thoughts he would not normally have. 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 Diego has been living in his current residence for about a year but expresses feeling unsafe and disconnected from his community, stating, The whole town's got something going on that I'm not a part of. The patient reports a history of depression dating back to 2003, following his [facility] from [facility]. He has previously tried antidepressants including Wellbutrin and Prozac but experienced side effects such as headaches and increased depression (in his early 20's). Diego admits to regular marijuana use, smoking quite a bit, daily. He also mentions a recent incident where he ingested Tylenol, associated with feelings of not wanting to live anymore and paranoid thoughts that even his family hated him. Diego reports experiencing generalized anxiety symptoms over the past two weeks, including worrying too much about different things, trouble relaxing, and feeling afraid as if something awful might happen. He rates these symptoms as occurring more than half the days in the past two weeks. The patient denies current hallucinations or thoughts of suicide. Medical History The patient has a history of depression, with the first episode occurring around 2003 after being released from [facility]. He has experienced suicidal ideations multiple times, including a recent incident involving Tylenol ingestion. The patient also reports symptoms of paranoia and unusual thoughts, such as believing people are lying. He has previously been prescribed antidepressants, including Wellbutrin and Prozac, for approximately one month each during his twenties, but experienced side effects such as headaches and increased depression. The patient has a history of substance use, reporting regular marijuana use. Family History The patient reports a family history of mental illness, stating Seems like there's a bit of that in the family. However, specific diagnoses, affected family members, and treatment details are not provided. The patient is unsure if family members with mental illness are medicated. Social History The patient lives with his brother and a friend of his mother, having resided in their current location for approximately one year. He reports feeling unsafe in his living environment and expresses concerns about the town. 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 He has a history of substance use, specifically marijuana, which he smokes every day. The patient has a history of incarceration, having been released from [facility] around 2003. He mentions experiencing episodes of depression following his release from [facility]. The patient has had thoughts of suicide, though not frequently. He reports symptoms of anxiety and worry, which affect him more than half the days over a two-week period. reports prior suicide attempts but did not elaborate on when or how. BRE-7 1. feeling nervous, anxious, or on edge. - several days 2. not being able to stop or control worrying - more than half the days 3. worrying too much about different things - more than half the days 4. trouble relaxing - several days 5. being so restless that it is hard to sit still. - not at all. 6. becoming easily annoyed or irritable. - not at all. 7. feeling afraid, as if something awful might happen - more than half the days result: 8- mild anxiety arcos depression inventory: 1. i feel sad 2. i feel discouraged about the future 3. as i look back on my life, all i can see is a lot of failures. 4. i don't enjoy things the way i used to. 5. i feel guilty a good part of the time. 6. i feel i am being punished 7. i am disapointed in my self. 8. i blame myself all the time for my faults 9. i would kill myself if i had the chance (within the past 7 days, patient denied current SI at time of assessment) 10. i don't cry any more than usual. 11. i am no more irritated by things than i ever was. 12. i have not lost interest in other people. 13. i put off making decisions more than i used to. 14. i don't feel that i look any worse than i used to. 15. i can work about as Well as before. 16. i wake up several hours earlier than i used to and cannot get back to sleep. 17. i don't get more tired than usual. 18. my appetite is not as good as it used to be. 19. i have lost more than 10 pounds. 20. i am worried about physical problems like aches, pains, upset stomach, or constipation 21. i am less interested in sex than i used to be. total: 24 Review of Systems Review of Systems: Review of Systems The patient reports recent sleep disturbances, experiencing difficulty falling asleep and only getting a few hours of broken sleep over a couple of nights. He denies current hallucinations. Psychiatrically, the patient acknowledges experiencing symptoms of paranoia, unusual thoughts, and feelings that people are lying. He reports having thoughts of suicide, though not frequently. The patient also indicates symptoms of anxiety, including excessive worrying about different things, trouble relaxing, and feeling afraid or as if something awful might happen. He reports becoming easily annoyed or irritable more than half the days over the past two weeks. The patient denies feeling restless or having difficulty sitting still. Constitutional: Constitutional: Reports difficulty sleeping, Reports lethargy and Reports weight loss Psychiatric: Psychiatric: Reports anxiety, Reports depression, Reports difficulty concentrating, Reports hopelessness, Reports paranoia and Reports suicidal ideation (Denied current suicidal thoughts. has a history of prior suicide attempts.) Comments: He reports experiencing episodes of depression since 2003, following his [facility] from [facility]. The patient acknowledges having suicidal thoughts, stating he was not really feeling like living anymore and thought even my own family hates me. His thought process appears somewhat disorganized, with paranoid ideation evident in his statement that the whole town's got something going on that I'm not a part of. The patient demonstrates some insight into his condition, recognizing that he was having symptoms of paranoia and feeling definitely unusual. His judgment appears impaired, as evidenced by his recent ingestion of Tylenol as a suicide attempt. [facility] Past Medical History Medical History (Updated 05/05/25 @ 15:23 by Jian Julian, STEPHEN) Methamphetamine abuse, episodic Continuous tobacco abuse Depression Surgical History Surgical History No history of previous surgery Family History Family History Mother Cancer Father Diabetes mellitus Sibling Leukemia Social History Social History Social History: The patient reports that he is single. He continues to smoke tobacco. He used to drink alcohol quite heavily but quit drinking alcohol approximately 02/2025. He a has experimented with numerous drugs. He still smokes methamphetamines intermittently. He reports he has not smoked meth in a couple months. Code status: Full code Surrogate decision maker: Mitchell (brother) Smoking packs per day: 1 Smoking cigarettes per day: 20.0 Years smoked: 10 Smoking pack-years: 10.00 Smoking status: Current every day smoker Tobacco type: cigarettes, cigars, e-cigarettes/vaping and smokeless tobacco Second hand tobacco smoke exposure: Yes Alcohol intake: former Substance use type: marijuana, crack/cocaine, heroin, amphetamines and painkillers Last use: not in a very long time Do You Feel Safe in your Home?: Yes Lack of Transportation: YES Lack of Food: Often True Current Housing: I Do Not Have Housing Concerned About Future Housing: YES Difficulty Paying Gas/Electric Bills: YES Difficulty Paying for Meds: YES Currently Unemployed: YES Education: Grade School Difficulty w/ Childcare or Family Care: No Spiritual care concerns: No Meds Home Medications and Allergies Home Medications ?Medication ?Instructions ?Recorded ?Confirmed ?Type No Home Medications 05/04/25 05/04/25 History Allergies Allergy/AdvReac Type Severity Reaction Status Date / Time No Known Allergies Allergy Verified 05/03/25 19:47 Vital Signs Vital Signs - 24 hr 05/04/25 16:00 05/04/25 16:00 05/04/25 18:00 Temperature 98.4 F Pulse Rate 62 64 68 Respiratory Rate 18 Blood Pressure 133/80 Pulse Oximetry 96 Oxygen Delivery 05/04/25 18:00 05/04/25 19:54 05/04/25 20:00 Temperature Pulse Rate 68 68 Respiratory Rate 16 Blood Pressure 151/78 H Pulse Oximetry 96 Oxygen Delivery Room Air 05/04/25 20:00 05/04/25 22:00 05/04/25 22:00 Temperature 98.6 F Pulse Rate 63 62 74 Respiratory Rate 16 20 Blood Pressure 125/62 138/91 H Pulse Oximetry 96 98 Oxygen Delivery 05/05/25 00:00 05/05/25 00:00 05/05/25 00:00 Temperature 98.5 F Pulse Rate 66 67 Respiratory Rate 16 Blood Pressure 134/83 Pulse Oximetry 98 Oxygen Delivery Room Air 05/05/25 02:00 05/05/25 02:00 05/05/25 04:00 Temperature Pulse Rate 58 L 58 L Respiratory Rate 15 Blood Pressure 110/71 Pulse Oximetry 96 Oxygen Delivery Room Air 05/05/25 04:00 05/05/25 04:00 05/05/25 06:00 Temperature 98.2 F Pulse Rate 57 L 72 75 Respiratory Rate 14 Blood Pressure 114/72 Pulse Oximetry 97 Oxygen Delivery 05/05/25 06:00 05/05/25 08:00 05/05/25 08:00 Temperature 97.8 F Pulse Rate 72 77 75 Respiratory Rate 16 19 Blood Pressure 136/94 H 119/95 H Pulse Oximetry 97 98 Oxygen Delivery 05/05/25 08:34 05/05/25 10:00 05/05/25 10:00 Temperature 98 F Pulse Rate 81 67 Respiratory Rate Blood Pressure Pulse Oximetry Oxygen Delivery Results Labs 05/05/25 04:07 05/05/25 12:14 Labs: Short CBC 05/05/25 Range/Units 04:07 WBC 8.3 (4.5-10.0) K/mm3 Hgb 14.2 (14.0-18.0) g/dL Hct 42.1 (42.0-52.0) % Plt Count 252 (150-375) k/mm3 BMP 05/04/25 05/05/25 05/05/25 17:52 04:07 12:14 Sodium 139 139 139 Potassium 3.9 4.0 4.1 Chloride 106 108 H 111 H Carbon Dioxide 23 26 16 L BUN 10 9 8 L Creatinine 0.77 0.66 L 0.65 L Glucose 127 H 106 101 Calcium 9.2 9.0 9.5 Liver Function 05/04/25 05/05/25 05/05/25 Range/Units 17:52 04:07 12:14 Total Bilirubin 1.6 H 1.0 0.9 (0.2-1.3) mg/dL AST 57 42 37 (17-59) U/L ALT 66 H 78 H 71 H (6-50) U/L Alkaline Phosphatase 53 54 60 (38-126) U/L Albumin 3.8 3.8 4.0 (3.5-5.1) g/dL
[2025-05-05] MEDS: MELATONIN 5 MG TABLET PO (22:54)
[2025-05-06] VITALS: PULSE 64
[2025-05-06 04:00] VITALS: PULSE 57
[2025-05-06 08:00] VITALS: BP 136/84; PULSE 64; PULSE 68; RESP 18; TEMP 36.2; O2SAT 98
[2025-05-06 08:02] LABS: Basophils Absolute Auto 0.1 K/mm3 (0.0-0.1); Basophils Percent Auto 0.9 % (0.2-1.2); Eosinophils Absolute Auto 0.3 K/mm3 (0-0.3); Eosinophils Percent Auto 3.3 % (0-4.4); Hematocrit 48.7 % (42.0-52.0); Hemoglobin 15.7 g/dL (14.0-18.0); Immature Granulocyte Absolute 0.02 K/mm3 (0.00-0.031); Immature Granulocyte Percent A 0.2 % (0-0.5); Lymphocytes Absolute Auto 2.49 K/mm3 (0.9-3.2); Lymphocytes Percent Auto 28.1 % (18.3-44.2); Mean Corpuscular HGB Conc 32.2 g/dl (32-36); Mean Corpuscular Hemoglobin 31.2 pg (26-34); Mean Corpuscular Volume 96.8 fl (80-100); Mean Platelet Volume 9.5 fl (7.4-10.4); Monocytes Absolute Auto 0.7 K/mm3 (0.1-0.6); Monocytes Percent Auto 7.7 % (2.6-8.5); Neutrophils Absolute Auto 5.3 K/mm3 (1.3-6.7); Neutrophils Percent Auto 59.8 % (45.5-73.1); Platelet Count Result 270 k/mm3 (150-375); Red Blood Count 5.03 M/mm3 (4.6-6.20); Red Cell Distribution Width 13.2 % (11.5-14.5); White Blood Count 8.9 K/mm3 (4.5-10.0)
[2025-05-06 08:51] LABS: Alanine Aminotransferase 71 U/L (6-50); Albumin Level 4.3 g/dL (3.5-5.1); Alkaline Phosphatase 56 U/L (38-126); Anion Gap 6 mmol/L (4-12); Aspartate Amino Transferase 33 U/L (17-59); Bilirubin,Total 1.2 mg/dL (0.2-1.3); Blood Urea Nitrogen 13 mg/dL (9-20); Calcium 9.7 mg/dL (8.4-10.2); Carbon Dioxide 30 mmol/L (22-30); Chloride 104 mmol/L (98-107); Estimated CRCL calculation 107 ml/min; Estimated Glomerular Filt Rate > 60; Glucose 108 mg/dL (65-110); Magnesium 2.1 mg/dL (1.6-2.3); Phosphorus 2.7 mg/dL (2.5-4.5); Potassium 4.5 mmol/L (3.4-5.0); Sodium 140 mmol/L (137-145)
[2025-05-06] MEDS: FLUoxetine HCL 20 MG CAPSULE PO (08:51)
--- NOTE | 2025-05-06 09:18 | P.PNINT_ITS ---
Progress Note: A&P Assessment and Plan (1) Acetaminophen overdose: Qualifiers: Encounter type: initial encounter Injury intent: intentional self-harm Qualified Code(s): T39.1X2A - Poisoning by 4-Aminophenol derivatives, intentional self-harm, initial encounter Code(s): T39.1X1A - Poisoning by 4-Aminophenol derivatives, accidental (unintentional), initial encounter Status: Acute Assessment and Plan: Presented with suicide attempt and acetaminophen overdose. And was started on NAC infusion. 05/05 His ALT level went up so although acetaminophen level has cleared ALT level has mildly improved and has now stable this morning. He is off of NAC infusion in consultation with poison Control Patient completely asymptomatic and all other vitals and labs are unremarkable (2) Continuous tobacco abuse: Code(s): Z72.0 - Tobacco use Status: Acute Assessment and Plan: Patient was encouraged and counseled to quit smoking Nicotine patch (3) Suicide attempt: Code(s): T14.91XA - Suicide attempt, initial encounter Status: Acute Assessment and Plan: One-to-one observation with a sitter Suicide precaution Patient was evaluated by Psychiatry and started on antidepressants. Patient will be now referred for inpatient psychiatry placement Plan DVT prophylaxis - SCD, ambulating Nutrition -tolerating diet Code Status - Full Code Subjective Date/time seen: 05/06/25 Afebrile. Denies any complaints. Tolerating p.o. diet. Stable vital signs. Patient denies fever, chest pain, shortness of breath, cough, nausea vomiting, abdominal pain,, diarrhea, headache or constipation. All other systems were reviewed and were negative Off NAC infusion Review of Systems Review of Systems: All systems reviewed & are unremarkable except as noted in HPI and below (HPI) Exam Narrative: General: Pt is alert awake and in NAD Lungs/Chest: Trachea central Clear BS B/L, No crackles or wheezing. Cardiac: RRR. Normal S1 S2. No murmurs Circulation: Pedal pulses are intact and symmetrical. Abdomen: Normal bowel sounds.. Soft. NT. ND. Extremities: No clubbing, cyanosis or edema. Warm : Flores in place Neurologic: Follows commands. Moves all 4 extremities PERRL AO x3 Skin: No Rash Objective Data Vital Signs Vital Signs: Vital Signs - 24 hr 05/05/25 10:00 05/05/25 10:00 05/05/25 12:00 Temperature Pulse Rate 81 67 66 Respiratory Rate Blood Pressure Pulse Oximetry Oxygen Delivery 05/05/25 16:00 05/05/25 16:00 05/05/25 19:57 Temperature 36.5 C Pulse Rate 80 61 Respiratory Rate 13 Blood Pressure 148/93 H Pulse Oximetry 98 Oxygen Delivery Room Air 05/05/25 20:00 05/05/25 23:44 05/06/25 00:00 Temperature 36.7 C Pulse Rate 68 60 64 Respiratory Rate 14 Blood Pressure 129/82 Pulse Oximetry 99 Oxygen Delivery 05/06/25 04:00 Temperature Pulse Rate 57 L Respiratory Rate Blood Pressure Pulse Oximetry Oxygen Delivery Intake/Output Intake/Output: Intake & Output 05/03/25 05/04/25 05/05/25 05/06/25 23:59 23:59 23:59 23:59 Intake Total 1263.25 3153.25 1690 250 Output Total 1850 2000 500 Balance 1263.25 1303.25 -310 -250 Meds/Results Medications: Active Medications Generic Name Dose Route Start Last Admin Trade Name Freq PRN Reason Stop Dose Admin Enoxaparin Sodium 40 mg 05/06/25 09:00 05/06/25 08:58 Enoxaparin 40 Mg/0.4 Ml Syringe SUB-Q Not Given DAILY MEHREEN Fluoxetine HCl 20 mg 05/06/25 09:00 05/06/25 08:51 Fluoxetine Hcl 20 Mg Capsule PO 20 mg DAILY MEHREEN Administration Melatonin 5 mg 05/05/25 16:42 05/05/25 22:54 Melatonin 5 Mg Tablet PO 5 mg HS PRN Administration sleep Nicotine 1 patch 05/05/25 09:00 05/05/25 10:49 Nicotine (*Pbkc) 7 Mg Patch TRANSDERM 1 patch DAILY MEHREEN Administration Ondansetron HCl 4 mg 05/04/25 01:03 05/04/25 01:10 Ondansetron Inj 4 Mg/2 Ml Vial IV PUSH 4 mg Q6H PRN Administration Nausea And Vomiting Trazodone HCl 50 mg 05/05/25 16:42 Trazodone Hcl 50 Mg Tablet PO HS PRN Insomnia Labs Labs: Laboratory Results - last 24 hr 05/05/25 05/05/25 05/06/25 12:14 12:14 07:48 WBC 8.9 RBC 5.03 Hgb 15.7 Hct 48.7 MCV 96.8 MCH 31.2 MCHC 32.2 RDW 13.2 Plt Count 270 MPV 9.5 Immature Gran % (Auto) 0.2 Neut % (Auto) 59.8 Lymph % (Auto) 28.1 [place] % (Auto) 7.7 Eos % (Auto) 3.3 Baso % (Auto) 0.9 Lymph # (Auto) 2.49 [place] # (Auto) 0.7 H Eos # (Auto) 0.3 Baso # (Auto) 0.1 Abs Immat Gran (auto) 0.02 Absolute Neuts (auto) 5.3 Absolute Nucleated RBC 0.000 Nucleated RBC % 0.0 PT 14.4 INR 1.1 APTT 27.3 Cancelled Sodium 139 140 Potassium 4.1 4.5 Chloride 111 H 104 Carbon Dioxide 16 L 30 Anion Gap 12 6 BUN 8 L 13 D Creatinine 0.65 L 0.93 Estim Creat Clear Calc 149 107 Estimated GFR > 60 > 60 Glucose 101 108 Calcium 9.5 9.7 Phosphorus 2.7 Magnesium 2.1 Total Bilirubin 0.9 1.2 AST 37 33 ALT 71 H 71 H Alkaline Phosphatase 60 56 Total Protein 6.3 7.0 Albumin 4.0 4.3 Acetaminophen < 10 L Quality VTE Prophylaxis VTE prophylaxis: mechanical ordered
[2025-05-06] MEDS: NICOTINE (*PBKC) 7 MG PATCH 1 PATCH TRANSDERM (12:53)
[2025-05-06 16:00] VITALS: BP 139/76; PULSE 69; RESP 18; TEMP 36.3; O2SAT 96
[2025-05-06] MEDS: MELATONIN 5 MG TABLET PO (22:07)
[2025-05-07] VITALS: BP 122/86; PULSE 68; RESP 16; TEMP 36.8; O2SAT 100
[2025-05-07 03:36] LABS: Hematocrit 46.2 % (42.0-52.0); Hemoglobin 15.1 g/dL (14.0-18.0); Mean Corpuscular HGB Conc 32.7 g/dl (32-36); Mean Corpuscular Hemoglobin 31.3 pg (26-34); Mean Corpuscular Volume 95.7 fl (80-100); Mean Platelet Volume 9.1 fl (7.4-10.4); Platelet Count Result 251 k/mm3 (150-375); Red Blood Count 4.83 M/mm3 (4.6-6.20); Red Cell Distribution Width 12.8 % (11.5-14.5); White Blood Count 9.9 K/mm3 (4.5-10.0)
[2025-05-07 03:49] LABS: Alanine Aminotransferase 59 U/L (6-50); Albumin Level 4.3 g/dL (3.5-5.1); Alkaline Phosphatase 54 U/L (38-126); Anion Gap 5 mmol/L (4-12); Aspartate Amino Transferase 25 U/L (17-59); Bilirubin,Total 1.3 mg/dL (0.2-1.3); Blood Urea Nitrogen 17 mg/dL (9-20); Calcium 9.5 mg/dL (8.4-10.2); Carbon Dioxide 31 mmol/L (22-30); Chloride 103 mmol/L (98-107); Estimated CRCL calculation 117 ml/min; Estimated Glomerular Filt Rate > 60; Glucose 97 mg/dL (65-110); Magnesium 2.1 mg/dL (1.6-2.3); Phosphorus 3.5 mg/dL (2.5-4.5); Potassium 4.2 mmol/L (3.4-5.0); Sodium 139 mmol/L (137-145); Total Protein 6.8 g/dL (6.3-8.2)
[2025-05-07 08:00] VITALS: PULSE 61; RESP 18; O2SAT 98
[2025-05-07 08:16] VITALS: BP 116/75; PULSE 61; RESP 18; TEMP 36.8; O2SAT 98
[2025-05-07] MEDS: NICOTINE (*PBKC) 7 MG PATCH 1 PATCH TRANSDERM (08:35)
[2025-05-07] MEDS: FLUoxetine HCL 20 MG CAPSULE PO (08:35)
--- NOTE | 2025-05-07 13:40 | PM.IMPN ---
Progress Note: A&P Assessment and Plan (1) Acetaminophen overdose: Qualifiers: Encounter type: initial encounter Injury intent: intentional self-harm Qualified Code(s): T39.1X2A - Poisoning by 4-Aminophenol derivatives, intentional self-harm, initial encounter Code(s): T39.1X1A - Poisoning by 4-Aminophenol derivatives, accidental (unintentional), initial encounter Status: Acute Assessment and Plan: Presented with suicide attempt and acetaminophen overdose. Status post NAC infusion. Poison Control was on board 05/05 His ALT level went up so although acetaminophen level has cleared LD continues to improve He is off of NAC infusion in consultation with poison Control Patient completely asymptomatic and all other vitals and labs are unremarkable (2) Continuous tobacco abuse: Code(s): Z72.0 - Tobacco use Status: Acute Assessment and Plan: Patient was encouraged and counseled to quit smoking Nicotine patch (3) Suicide attempt: Code(s): T14.91XA - Suicide attempt, initial encounter Status: Acute Assessment and Plan: One-to-one observation with a sitter Suicide precaution Patient was evaluated by Psychiatry and started on antidepressants. Patient will be now referred for inpatient psychiatry placement -crisis management and care coordination to evaluate as patient is medically stable for transfer to a facility Plan DVT prophylaxis - SCD, ambulating Nutrition -tolerating diet Code Status - Full Code Subjective Date/time seen: 05/07/25 13:40 Interval history: 40-year-old male, homeless presented with Tylenol overdose, patient took Tylenol 500 mg times 115 pills at a [facility], had nausea and vomiting after that in presented to the ED. Status post N acetyl cystine Patient being seen for hospitalist team 05/07: Patient is awake, alert, in no acute distress. Walked around the ICU without any issues. Denies any shortness of breath, chest pain, abdominal pain, nausea, vomiting at this time. Denies any suicidal ideation Review of Systems Review of Systems: All systems reviewed & are unremarkable except as noted in HPI and below (HPI) Exam Narrative: General: Pt is alert awake and in NAD Lungs/Chest: Trachea central Clear BS B/L, No crackles or wheezing. Cardiac: RRR. Normal S1 S2. No murmurs Circulation: Pedal pulses are intact and symmetrical. Abdomen: Normal bowel sounds.. Soft. NT. ND. Extremities: No clubbing, cyanosis or edema. Warm : Flores in place Neurologic: Follows commands. Moves all 4 extremities PERRL AO x3 Skin: No Rash Objective Data Vital Signs Vital Signs: Vital Signs - 24 hr 05/06/25 16:00 05/06/25 20:00 05/07/25 00:00 Temperature 97.3 F L 98.2 F Pulse Rate 69 68 Respiratory Rate 18 16 Blood Pressure 139/76 122/86 Pulse Oximetry 96 100 Oxygen Delivery Room Air 05/07/25 08:00 05/07/25 08:16 Temperature 98.3 F Pulse Rate 61 61 Respiratory Rate 18 18 Blood Pressure 116/75 Pulse Oximetry 98 98 Oxygen Delivery Room Air Intake/Output Intake/Output: Intake & Output 05/04/25 05/05/25 05/06/25 05/07/25 23:59 23:59 23:59 23:59 Intake Total 3153.25 1690 790 728 Output Total 1850 2000 500 Balance 1303.25 -310 290 728 Meds/Results Medications: Active Medications Generic Name Dose Route Start Last Admin Trade Name Freq PRN Reason Stop Dose Admin Enoxaparin Sodium 40 mg 05/06/25 09:00 05/07/25 08:38 Enoxaparin 40 Mg/0.4 Ml Syringe SUB-Q Not Given DAILY MEHREEN Fluoxetine HCl 20 mg 05/06/25 09:00 05/07/25 08:35 Fluoxetine Hcl 20 Mg Capsule PO 20 mg DAILY MEHREEN Administration Melatonin 5 mg 05/05/25 16:42 05/06/25 22:07 Melatonin 5 Mg Tablet PO 5 mg HS PRN Administration sleep Nicotine 1 patch 05/05/25 09:00 05/07/25 08:35 Nicotine (*Pbkc) 7 Mg Patch TRANSDERM 1 patch DAILY MEHREEN Administration Ondansetron HCl 4 mg 05/04/25 01:03 05/04/25 01:10 Ondansetron Inj 4 Mg/2 Ml Vial IV PUSH 4 mg Q6H PRN Administration Nausea And Vomiting Trazodone HCl 50 mg 05/05/25 16:42 Trazodone Hcl 50 Mg Tablet PO HS PRN Insomnia Labs Labs: Laboratory Results - last 24 hr 05/07/25 03:31 WBC 9.9 RBC 4.83 Hgb 15.1 Hct 46.2 MCV 95.7 MCH 31.3 MCHC 32.7 RDW 12.8 Plt Count 251 MPV 9.1 Sodium 139 Potassium 4.2 Chloride 103 Carbon Dioxide 31 H Anion Gap 5 BUN 17 Creatinine 0.85 Estim Creat Clear Calc 117 Estimated GFR > 60 Glucose 97 Calcium 9.5 Phosphorus 3.5 Magnesium 2.1 Total Bilirubin 1.3 AST 25 ALT 59 H Alkaline Phosphatase 54 Total Protein 6.8 Albumin 4.3 Quality VTE Prophylaxis VTE prophylaxis: mechanical ordered
[2025-05-07 16:00] VITALS: BP 121/72; PULSE 61; RESP 10; TEMP 36.8; O2SAT 98
--- NOTE | 2025-05-07 16:55 | PC.NURSE ---
Patient received order to discharge to [facility] [phone] admitting Dx MDD report called to JENI [place] charge nurse. Patient will be going into room 2669-A.
--- NOTE | 2025-05-22 13:16 | P.TS_ITS ---
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 DS: Discharge Diagnosis Discharge Diagnosis (1) Acetaminophen overdose: Qualifiers: Encounter type: initial encounter Injury intent: intentional self-harm Qualified Code(s): T39.1X2A - Poisoning by 4-Aminophenol derivatives, intentional self-harm, initial encounter Code(s): T39.1X1A - Poisoning by 4-Aminophenol derivatives, accidental (unintentional), initial encounter Status: Acute Assessment and Plan: Presented with suicide attempt and acetaminophen overdose. Status post NAC infusion. Poison Control was on board 05/05 His ALT level went up so although acetaminophen level has cleared LD continues to improve He is off of NAC infusion in consultation with poison Control Patient completely asymptomatic and all other vitals and labs are unremarkable (2) Continuous tobacco abuse: Code(s): Z72.0 - Tobacco use Status: Acute Assessment and Plan: Patient was encouraged and counseled to quit smoking Nicotine patch (3) Suicide attempt: Code(s): T14.91XA - Suicide attempt, initial encounter Status: Acute Assessment and Plan: One-to-one observation with a sitter Suicide precaution Patient was evaluated by Psychiatry and started on antidepressants. Patient will be now referred for inpatient psychiatry placement -crisis management and care coordination to evaluate as patient is medically stable for transfer to a facility Plan DVT prophylaxis - SCD, ambulating Nutrition -tolerating diet Code Status - Full Code Transfer Discharge Sum: Med Medications Active and Home Medications: Home Medications No Home Medications 05/04/25 [History Confirmed 05/04/25] Transfer Discharge Sum: Hosp Hospital Course Hospital course: Diego Elizondo is a 40 year old male with a past medical history of anxiety, depression, migraines and obstructive sleep apnea who is currently not on any treatment presented to the ED via EMS yesterday from local [facility] where he intentionally overdosed on Tylenol. The patient grabbed to bottles of Tylenol at [facility]. He reported that he took approximately 115 tablets of 500 mg Tylenol around 19:00. The patient and proceeded to vomit before he left [facility]. The patient was nauseous in the ER, vomited and received Zofran. Poison control was notified. Labs were drawn. Patient was started on N-acetylcysteine infusion and admitted to ICU. Workup in the ER showed normal white count hemoglobin at 13.5, hematocrit 40 platelet count 254, INR 1.1 normal PT and PTT, respiratory alkalosis on VBG, sodium 139 potassium 4.1 CO2 27 normal BUN and creatinine glucose 151 calcium 8.9, normal transaminases total protein 6.2 albumin 3.9. The diluted specimen demonstrated a Tylenol level of 303 the correct specimen demonstrate Tylenol level of 391. Urine drug screen was positive for cannabinoid. Patient's salicylate level was negative and alcohol Patient was started on N acetylcystine, repeat Tylenol level were < 10 x2 before transferring to psych facility. Patient's LFTs were also trending down -on the day of transfer patient was awake, alert in no acute distress, walked around the ICU without any issues denies any shortness of breath, chest pain, abdominal pain, nausea or vomiting. Crisis management did evaluate the patient. Patient was transferred to [facility] Patient Condition: Stable Time Spent with Patient Time attestation: Total time spent providing and/or coordinating transfer services: Exam Narrative: General: Pt is alert awake and in NAD Lungs/Chest: Trachea central Clear BS B/L, No crackles or wheezing. Cardiac: RRR. Normal S1 S2. No murmurs Circulation: Pedal pulses are intact and symmetrical. Abdomen: Normal bowel sounds.. Soft. NT. ND. Extremities: No clubbing, cyanosis or edema. Warm : Flores in place Neurologic: Follows commands. Moves all 4 extremities PERRL AO x3 Skin: No Rash
== END 2025-05-07 17:59 | disposition short-term general hospital (02) | DRG 817 ==
LOC: ANHED 21:53 → ANHICU 22:43
PROVIDERS: Internal Medicine; Admitting Provider Internal Medicine; Emergency Provider Emergency Medicine; PCP Emergency Medicine; Visit Provider Internal Medicine
DX: T39.1X2A Poisoning by 4-Aminophenol derivatives, intentional self-harm, initial encounter (principal); F32.9 Major depressive disorder, single episode, unspecified; F41.1 Generalized anxiety disorder; G47.33 Obstructive sleep apnea (adult) (pediatric); F51.05 Insomnia due to other mental disorder; F22 Delusional disorders; F15.10 Other stimulant abuse, uncomplicated; F12.90 Cannabis use, unspecified, uncomplicated; F14.90 Cocaine use, unspecified, uncomplicated; F11.90 Opioid use, unspecified, uncomplicated; F17.290 Nicotine dependence, other tobacco product, uncomplicated; F17.210 Nicotine dependence, cigarettes, uncomplicated; Z20.822 Contact with and (suspected) exposure to COVID-19
CPT/HCPCS: 36415; 80053; 80143; 80179; 80307; 81001; 82077; 82803; 83605; 83690; 83735; 84100; 84484; 85025; 85027; 85610; 85730; 87637; 87641; 93005; 96361; 96365; 96367; 96375; 99285; A9270; J0132; J2405; J2550; J7030; J7060; J7070